=== PATIENT | female | born 1945 | race Two or more races ===

== ENCOUNTER 2019-07-05 07:12 | Outpatient (CLI) | payer OTHER | END 2019-07-05 07:14 | disposition home or self-care (01) | LOC: SONOGRAMA 07:12 | DX: E04.2 Nontoxic multinodular goiter (principal) ==

== ENCOUNTER 2019-12-20 07:10 | Outpatient (CLI) | payer OTHER | END 2019-12-20 07:13 | disposition home or self-care (01) | LOC: SONOGRAMA 07:10 | DX: E04.2 Nontoxic multinodular goiter (principal) ==

== ENCOUNTER → 2023-08-25 | Outpatient (CLI) | payer OTHER | END | disposition home or self-care (01) | LOC: SONOGRAMA 07:51 | PROVIDERS: ATTEND Pathology Anatomic Pathology & Clinical Pathology | DX: D44.0 Neoplasm of uncertain behavior of thyroid gland (principal); D34 Benign neoplasm of thyroid gland; E04.9 Nontoxic goiter, unspecified; E07.9 Disorder of thyroid, unspecified ==